=== PATIENT | female | born 1985 | race African-American/Black ===

== ENCOUNTER → 2016-11-08 | Outpatient (RCR) | payer OTHER ==
[~2016-11-08] MED LIST: ACET50TA PO; IBUP80TA PO; PRENTAB9 PO
== END ==
LOC: M OUTALCOH 10-11 16:00
PROVIDERS: ATTEND Psychiatry & Neurology Psychiatry
DX: Z72.0 Tobacco use (principal); F10.20 Alcohol dependence, uncomplicated

== ENCOUNTER → 2016-12-06 | Outpatient (RCR) | payer OTHER | LOC: M OUTALCOH 11-15 10:35 | PROVIDERS: ATTEND Psychiatry & Neurology Psychiatry | DX: F10.20 Alcohol dependence, uncomplicated (principal); Z72.0 Tobacco use ==

== ENCOUNTER 2016-12-20 10:00 | Outpatient (RCR) | payer OTHER | END 2017-01-06 | LOC: M OUTALCOH 10:00 | PROVIDERS: ATTEND Psychiatry & Neurology Psychiatry | DX: Z72.0 Tobacco use (principal); F10.20 Alcohol dependence, uncomplicated ==

== ENCOUNTER → 2017-02-09 | Outpatient (CLI) | payer OTHER | LOC: M OUTALCOH 08:52 | PROVIDERS: ATTEND Psychiatry & Neurology Psychiatry | DX: F14.20 Cocaine dependence, uncomplicated (principal) ==

== ENCOUNTER → 2018-06-18 | Outpatient (CLI) | payer OTHER, MEDICAID ==
[2018-06-18 11:59] LABS: BASO % 0.2 % (0.0-1.0); EOS # 0.1 10^3/uL (0.0-0.50); EOS % 0.6 % (0.0-3.0); HEMATOCRIT 40.4 % (36.0-47.0); HEMOGLOBIN 13.4 g/dl (12.0-15.5); IMMATURE GRANULOCYTE # 0.1 10^3/uL (0-0); LYMPH # 2.8 10^3/uL (1.5-4.5); LYMPH % 33.6 % (24.0-44.0); MEAN CORPUSCULAR HGB CONC 33.2 g/dl (32.0-36.5); MEAN CORPUSCULAR VOLUME 90.6 fl (80.0-96.0); MONO # 0.6 10^3/uL (0.0-0.8); MONO % 7.3 % (0.0-5.0); NEUTROPHILS # 4.7 10^3/uL (1.8-7.7); NEUTROPHILS % 57.3 % (36.0-66.0); PLATELET COUNT, AUTOMATED 312 10^3/uL (150-450); RED BLOOD COUNT 4.46 10^6/uL (4.00-5.40); RED CELL DISTRIBUTION WIDTH 14.1 % (11.5-14.5); WHITE BLOOD COUNT 8.2 10^3/uL (4.0-10.0)
[2018-06-18 15:48] LABS: HCG, SERUM QUALITATIVE NEGATIVE (NEGATIVE)
[2018-06-18 15:49] LABS: CONTROL LINE HCG INT CTR LINE PRESENT
[2018-06-18 16:04] LABS: PROLACTIN 35.9 NG/ML
[2018-06-18 23:21] LABS: ALBUMIN 3.7 GM/DL (3.2-5.2); ALKALINE PHOSPHATASE 70 U/L (45-117); ALT/SGPT 25 U/L (12-78); ANION GAP 7 MEQ/L (8-16); AST/SGOT 12 U/L (7-37); BILIRUBIN,TOTAL 0.3 MG/DL (0.2-1.0); BLOOD UREA NITROGEN 13 MG/DL (7-18); CALCIUM LEVEL 9.2 MG/DL (8.5-10.1); CARBON DIOXIDE LEVEL 27 MEQ/L (21-32); CHLORIDE LEVEL 105 MEQ/L (98-107); CREATININE FOR GFR 0.79 MG/DL (0.55-1.30); GLOMERULAR FILTRATION RATE > 60.0 (>60); POTASSIUM SERUM 4.5 MEQ/L (3.5-5.1); SODIUM LEVEL 139 MEQ/L (136-145); TOTAL PROTEIN 7.4 GM/DL (6.4-8.2); TRIGLYCERIDES LEVEL 128 MG/DL (<150)
[2018-06-18 23:35] LABS: CHOLESTEROL LEVEL 181 MG/DL (<200); HDL CHOLESTEROL 58 MG/DL (>40); LDL CHOLESTEROL 97.4 MG/DL (<100); NON-HDL-C 123 MG/DL
[2018-06-19 00:32] LABS: GLUCOSE, FASTING 72 MG/DL (70-100)
== END ==
LOC: M LAB 11:34
DX: F31.9 Bipolar disorder, unspecified (principal)
CPT/HCPCS: 84146

== ENCOUNTER → 2018-09-05 | Outpatient (CLI) | payer OTHER | LOC: M OUTALCOH 07:58 | DX: F14.20 Cocaine dependence, uncomplicated (principal) ==

== ENCOUNTER 2018-10-04 14:00 | Outpatient (RCR) | payer OTHER ==
[~2018-10-04 14:00] MED LIST changes: -ACET50TA PO; +MAPA500T2 PO
== END 2018-10-08 ==
LOC: M OUTALCOH 14:00
PROVIDERS: ATTEND Psychiatry & Neurology Psychiatry
DX: F14.20 Cocaine dependence, uncomplicated (principal); Z72.0 Tobacco use